=== PATIENT | female | born 1980 | race African-American/Black ===

== ENCOUNTER 2019-12-16 10:04 | Day surgery (SDC) | payer SELFPAY ==
[2019-12-16 10:46] VITALS: BMI 40.3
[2019-12-16] MEDS ORDERED: FLU VACC QS2020-21(6MOS UP)/PF 60 MCG/0.5 ML SYRINGE IM ONE (11:00)
[2019-12-16 11:11] LABS: Bacteria/HPF None Seen HPF (None Seen); Bilirubin Negative (Negative); Blood, Urine Negative (Negative); Clarity Clear (Clear); Glucose, Urine (Dipstick) Normal (Negative); Ketone, Urine Negative (Negative); Leukocyte Negative Leu/uL (Negative); Nitrite Negative (Negative); Protein, Urine (Dipstick) 10 mg/dL (Neg-Trace); RBC/HPF 0-3 HPF (0-3); Squamous Epithelial 0-3 HPF (0-3); Urobilinogen Normal mg/dL (Less than 2); WBC/HPF 0-3 HPF (0-3); pH, Urine 7.5 (5.0-9.0)
[2019-12-16 11:14] LABS: Urine Culture Reflex No No
--- NOTE | 2019-12-16 11:30 | PDOC.LDHP ---
Labor and Delivery H&P Chief complaint: abdominal pain HPI: 39 y/o at 20w4d presents for lower abdominal pain and spotting. Patient reports she gets pain for several hours at a time in her bilateral lower inguinal region that she describes as sharp and rates 5/10. She also has had some spotting off and on for several weeks. Denies heavy VB, LOF, or other concerns. Denies UTI sx. Has not had PNC yet but is scheduled for Monday at [facility]. ROS neg for HEENT, CV, pulm, gi, gu, neuro, psych, skin, musculoskeletal or constitutional symptoms other than mentioned above. OB History Details: 1 prior 22 years ago. Current complications: hypertension (no meds) Past Medical History: HTN - stopped meds when she found out she was . Current medications: pre-matt vitamins Previous surgical history: none Allergies/Adverse Reactions: Allergies Allergy/AdvReac Type Severity Reaction Status Date / Time No Known Allergies Allergy Verified 12/16/19 10:42 Social history: none - Physical Exam Vital signs reviewed and normal: yes General: NAD, resting Lungs: nonlabored breathing Abdomen: gravid Extremeties: no edema FHT: category 1 (140s) - Vaginal Exam cm dilated: 0 (no blood on SSE) Effacement: 0% Station: -3 - OB Labs Blood type: B RH: positive - Assessment 39 y/o at 20w4d with no e/o heavy bleeding or UTI. UA wnl. +FHTs - Plan -: D/c home with precautions. Advised to keep all appointments. First appointment scheduled for Monday.
== END 2019-12-16 11:46 | disposition home or self-care (01) ==
LOC: L&D/OP 10:04
PROVIDERS: ATTEND Family Medicine
DX: O99.891 Other specified diseases and conditions complicating pregnancy (principal); R10.30 Lower abdominal pain, unspecified; O26.852 Spotting complicating pregnancy, second trimester; O10.912 Unspecified pre-existing hypertension complicating pregnancy, second trimester; O09.522 Supervision of elderly multigravida, second trimester; Z3A.20 20 weeks gestation of pregnancy
CPT/HCPCS: 51701; 81001; 99282

== ENCOUNTER 2020-01-22 23:13 | Day surgery (SDC) | payer SELFPAY ==
[2020-01-22] MEDS ORDERED: hydrALAZINE 20 MG/ML VIAL SLOW IVP PRN (23:38)
--- NOTE | 2020-01-22 23:38 | PDOC.FPROB ---
FMR OB H&P: HPI - History of Present Illness Chief Complaint: groin pain History of Present Illness: 39 y/o at 26.0 wks by 6.5 wk inder presents for evaluation of groin/vaginal pain. States she has been having this pain since 11/2019, came to triage tonight due to acute worsening of this pain. For past 2 hours, she has had sharp, stabbing pain over the R labial and mons area. Denies any vaginal bleeding, vaginal discharge, LOF. Good movement. No fever, chills, dysuria, hematuria, rash, skin lesions. Endorses chronic constipation. Denies recent sexual activity. Primary Care Physician: MAYRA Gallardo F[facility] OB H&P: Current - Care : G2 Para: P1001 Gestational age: 26.0 Due date: 04/30/20 Dating Criteria: 6.5 wk sono Course/Complications: Hx trichomonas - treated - OB Labs Blood type: B RH: positive HIV: negative RPR: negative HepBsAg: negative Rubella: immune [facility]MR OB H&P: History - Past Medical History PMH: HTN, reflux - OB History OB History: x 1 - [employer] History [employer] History: endometriosis, uterine fibroid - Surgical History Sx History: No past surgeries - Social History Social History: Denies tobacco, etoh, drug use. Hx of incarceration x 20 years, released May 2019. - Family History Family History: CAD, breast cancer, DM, cirrhosis, alzheimer, brain aneurysm FMR OB H&P: Medications - Current Home Medications: Medication Instructions Recorded Confirmed Type No Known 01/22/20 01/22/20 History Allergies/Adverse Reactions: Allergies Allergy/AdvReac Type Severity Reaction Status Date / Time No Known Allergies Allergy Verified 12/16/19 10:42 FMR OB H&P: ROS - Review of Systems General: denies: fever/chills ENT: denies: nasal congestion, rhinorrhea, sore throat Cardiovascular: denies: chest pain, palpitation, edema Respiratory: denies: cough, congestion, shortness of breath Gastrointestinal: reports: indigestion, constipation. denies: vomiting, diarrhea Genitourinary (Female): reports: other (groin pain). denies: dysuria, hematuria, polyuria, vaginal discharge, vaginal bleeding, contractions Musculoskeletal: denies: pain Neurologic: denies: weakness, headache Integumentary: denies: itching, rash, lesions Endocrine: denies: polyuria FMR OB H&P: Vital Signs - Heart Tones Variability: moderate Acceleration: present Deceleration: absent [place] contractions every: absent FMR OB H&P: Physical Exam - Physical Exam General: NAD, awake, alert and oriented HEENT: normocephalic and atraumatic, MMM, conjunctiva clear, no scleral icterus, grossly normal vision, grossly normal hearing Neck: no LAD Chest: non-tender to palpation Heart: RRR, no murmurs/rubs/gallops, pulses present, no edema General: CTAB, no respiratory distress, no rales/rhonchi, no wheezing Abdomen: soft, gravid, non-tender Musculoskeletal: pulses present Neurological: sensation to pain,touch and proprioception grossly normal, no clonus Skin: no rash, good tugor Lymphatic: no unusual bruising or bleeding Psychiatric: intact recent and remote memory, normal mood and affect - Pelvic Exam Vulva: no masses, no lesions, no blood Deviation from normal: speculum exam without lesions, small amt discharge in vaginal vault Deviation from normal: no cervical motion tenderness FMR OB H&P: A/P Disposition: sIUP @ 26.0 wks - JOE 04/30/20 - late to care - FHT monitoring wnl Round ligament pain R sided groin pain, most likely round ligament pain. - No rash, skin lesions noted on exam. Minimal discharge noted on exam. - GC/CT, VP3, urine cx collected at [facility] yesterday during routine visit, results pending - 1 g tylenol GERD - pepcid x 1 Dispo: unremarkable exam. pain resolved with tylenol. discharge to home and f/u results of [facility] testing. Discussion: Date/Time: 01/22/20 2007 This H&P was discussed with Dr. Jett and Dr. Bhat who agree with the above documentation and plan. Addendum - Attending - Attending Attestation Date/Time: 01/24/20 0030 I personally evaluated the patient and discussed the management with Dr. Pressley on 01/22/20 I agree with the History, Examination, Assessment and Plan documented above with any addition or exceptions noted below - 39 y/o at 26.0 wks by 6.5 wk inder presents for evaluation of groin/vaginal pain. States she has been having this pain since 11/2019, came to triage tonight due to acute worsening of this pain. For past 2 hours, she has had sharp, stabbing pain over the R labial and mons area. Denies any vaginal bleeding, vaginal discharge, LOF. Good movement. No fever, chills, dysuria, hematuria, rash, skin lesions. Endorses chronic constipation. Afebrile VSS. Exam repeated by me and agree with resident's findings. A/P: 1) Round ligament pain- improved with dose of tylenol. Recommended tylenol at home as needed. Follow-up as scheduled in clinic. D/c home.
[2020-01-22 23:44] VITALS: BMI 38.7
[2020-01-23] MEDS ORDERED: Acetaminophen 500 MG TAB PO SCH (00:30)
[2020-01-23] MEDS ORDERED: Famotidine 20 MG TAB PO SCH (00:30)
[2020-01-23] MEDS ORDERED: FLU VACC QS2020-21(6MOS UP)/PF 60 MCG/0.5 ML SYRINGE IM ONE (09:00)
== END 2020-01-23 01:08 | disposition home or self-care (01) ==
LOC: L&D/OP 23:13
PROVIDERS: ATTEND Family Medicine
DX: O99.891 Other specified diseases and conditions complicating pregnancy (principal); R10.2 Pelvic and perineal pain; O99.612 Diseases of the digestive system complicating pregnancy, second trimester; K21.9 Gastro-esophageal reflux disease without esophagitis; O16.2 Unspecified maternal hypertension, second trimester; Z3A.26 26 weeks gestation of pregnancy; Z86.19 Personal history of other infectious and parasitic diseases
CPT/HCPCS: 99283

== ENCOUNTER 2021-10-26 05:09 | Emergency (ER) | payer OTHER ==
[2021-10-26] MEDS ORDERED: Adenosine 6 MG/2 ML VIAL ONE ×2 (05:15→05:25)
[2021-10-26] MEDS ORDERED: Lorazepam (BATCHED) 2 MG/ML SYR SLOW IVP SCH (05:30)
[2021-10-26] MEDS ORDERED: Lorazepam (BATCHED) 2 MG/ML SYR ONE (05:44)
[2021-10-26 05:57] LABS: #Basophils 0.1 thou/uL (0.0-0.2); #Eosinphils 0.2 thou/uL (0.0-0.7); #Lymphocytes 2.8 thou/uL (1.20-3.40); #Monocytes 0.5 thou/uL (0.11-0.59); #Neutrophils 4.4 thou/uL (1.40-6.50); %Basophils 1.4 % (0.0-1.0); %Eosinophils 2.4 % (0.0-10.0); %Lymphocytes 34.8 % (21.0-51.0); %Monocytes 6.7 % (0.0-10.0); %Neutrophils 54.7 % (42.0-75.0); Hemoglobin 12.3 g/dL (12.0-16.0); Mean Corpuscular HGB CONC 32.4 g/dL (32.0-36.0); Mean Corpuscular Hemoglobin 28.3 pg (27.0-31.0); Mean Corpuscular Volume 87.4 fL (78.0-98.0); Mean Platelet Volume 10.9 fL (7.4-10.4); Platelet Count 167 thou/uL (130-400); RBC Distribution Width 13.1 % (11.5-14.5); Red Blood Cell (RBC) Count 4.36 mill/uL (4.20-5.40)
[2021-10-26 06:18] LABS: ALT (SGPT) 16 U/L (8-55); AST (SGOT) 19 U/L (5-34); Albumin 3.5 g/dL (3.5-5.0); Alkaline Phosphatase 92 U/L (40-110); Anion Gap 15 mmol/L (10-20); BUN (Urea Nitrogen) 8 mg/dL (7.0-18.7); Bilirubin, Total 0.3 mg/dL (0.2-1.2); Calc. Creatinine Clearance 0 mL/min (70-130); Calcium 8.1 mg/dL (7.8-10.44); Carbon Dioxide 17 mmol/L (22-29); Chloride 111 mmol/L (98-107); Estimated GFR 95; Glucose 111 mg/dL (70-105); Potassium 3.9 mmol/L (3.5-5.1); Protein, Total 6.5 g/dL (6.0-8.3); Sodium 139 mmol/L (136-145)
[2021-10-26 06:51] LABS: BHCG - Serum Negative (NEGATIVE); Pregs Control Background? CLEAR/WHITE (CLR/WHITE); Pregs Control Bar Appear? YES (CONTROL BAR)
== END 2021-10-26 08:28 | disposition home or self-care (01) ==
LOC: ERS 05:09
DX: I47.1 Supraventricular tachycardia (principal); I10 Essential (primary) hypertension
CPT/HCPCS: 71045; 80053; 84443; 84484; 84703; 85025; 93005; 96374; 96375; J0153; J2060

== ENCOUNTER 2022-04-05 09:10 | Emergency (ER) | payer OTHER ==
[2022-04-05 10:52] LABS: #Basophils 0.1 thou/uL (0.0-0.2); #Eosinphils 0.2 thou/uL (0.0-0.7); #Lymphocytes 1.9 thou/uL (1.20-3.40); #Monocytes 0.5 thou/uL (0.11-0.59); #Neutrophils 3.2 thou/uL (1.40-6.50); %Basophils 1.5 % (0.0-1.0); %Eosinophils 3.6 % (0.0-10.0); %Lymphocytes 32.3 % (21.0-51.0); %Monocytes 7.9 % (0.0-10.0); %Neutrophils 54.8 % (42.0-75.0); Hemoglobin 13.2 g/dL (12.0-16.0); Mean Corpuscular HGB CONC 32.6 g/dL (32.0-36.0); Mean Corpuscular Hemoglobin 28.6 pg (27.0-31.0); Mean Corpuscular Volume 87.6 fl (78.0-98.0); Mean Platelet Volume 10.5 fL (7.4-10.4); Platelet Count 160 10x3/uL (130-400); RBC Distribution Width 13.4 % (11.5-14.5); Red Blood Cell (RBC) Count 4.62 mill/uL (4.20-5.40); White Blood Cell (WBC) Count 5.8 10x3/uL (4.8-10.8)
[2022-04-05 11:12] LABS: ALT (SGPT) 12 U/L (8-55); AST (SGOT) 15 U/L (5-34); Albumin 3.7 g/dL (3.5-5.0); Alkaline Phosphatase 101 U/L (40-110); Anion Gap 10 mmol/L (10-20); BUN (Urea Nitrogen) 8 mg/dL (7.0-18.7); Bilirubin, Total 0.2 mg/dL (0.2-1.2); Calc. Creatinine Clearance 0 mL/min (70-130); Calcium 9.3 mg/dL (7.8-10.44); Carbon Dioxide 26 mmol/L (22-29); Chloride 107 mmol/L (98-107); Estimated GFR 95; Globulin 3.5 g/dL (2.4-3.5); Glucose 99 mg/dL (70-105); Potassium 5.4 mmol/L (3.5-5.1); Protein, Total 7.2 g/dL (6.0-8.3); Sodium 138 mmol/L (136-145)
[2022-04-05] MEDS ORDERED: Metoprolol Tartrate 5 MG/5 ML VIAL ONE (11:47)
[2022-04-05 12:43] LABS: Anion Gap 15 mmol/L (10-20); BUN (Urea Nitrogen) 8 mg/dL (7.0-18.7); Calc. Creatinine Clearance 0 mL/min (70-130); Calcium 9.4 mg/dL (7.8-10.44); Carbon Dioxide 17 mmol/L (22-29); Chloride 111 mmol/L (98-107); Estimated GFR 102; Glucose 90 mg/dL (70-105); Potassium 5.3 mmol/L (3.5-5.1); Sodium 138 mmol/L (136-145)
== END 2022-04-05 13:46 | disposition home or self-care (01) ==
LOC: ERS 09:10
DX: I47.1 Supraventricular tachycardia (principal); R07.9 Chest pain, unspecified; E87.5 Hyperkalemia
CPT/HCPCS: 36415; 71045; 80053; 83880; 84484; 85025; 93005; 96374

== ENCOUNTER 2022-05-11 13:09 | Inpatient (IN) | payer OTHER ==
[2022-05-11] MEDS ORDERED: Adenosine 6 MG/2 ML VIAL ONE ×2 (13:17→13:26)
[2022-05-11] MEDS ORDERED: Diltiazem 125 MG/25 ML ONE (13:53)
[2022-05-11] MEDS ORDERED: Metoprolol Tartrate 25 MG TAB ONE (14:05)
[2022-05-11 15:11] LABS: #Basophils 0.1 thou/uL (0.0-0.2); #Eosinphils 0.2 thou/uL (0.0-0.7); #Lymphocytes 2.5 thou/uL (1.20-3.40); #Monocytes 0.6 thou/uL (0.11-0.59); #Neutrophils 4.4 thou/uL (1.40-6.50); %Basophils 1.1 % (0.0-1.0); %Eosinophils 2.7 % (0.0-10.0); %Monocytes 7.8 % (0.0-10.0); %Neutrophils 56.6 % (42.0-75.0); Hemoglobin 13.8 g/dL (12.0-16.0); Mean Corpuscular HGB CONC 32.4 g/dL (32.0-36.0); Mean Corpuscular Hemoglobin 28.4 pg (27.0-31.0); Mean Corpuscular Volume 87.7 fl (78.0-98.0); Mean Platelet Volume 11.6 fL (7.4-10.4); Platelet Count 150 10x3/uL (130-400); RBC Distribution Width 13.9 % (11.5-14.5); Red Blood Cell (RBC) Count 4.87 mill/uL (4.20-5.40); White Blood Cell (WBC) Count 7.7 10x3/uL (4.8-10.8)
[2022-05-11 15:28] LABS: ALT (SGPT) 13 U/L (8-55); AST (SGOT) 16 U/L (5-34); Albumin 4.3 g/dL (3.5-5.0); Alkaline Phosphatase 126 U/L (40-110); Anion Gap 12 mmol/L (10-20); BUN (Urea Nitrogen) 11 mg/dL (7.0-18.7); Bilirubin, Total 0.2 mg/dL (0.2-1.2); Calc. Creatinine Clearance 0 mL/min (70-130); Carbon Dioxide 22 mmol/L (22-29); Chloride 107 mmol/L (98-107); Estimated GFR 86; Globulin 3.9 g/dL (2.4-3.5); Glucose 85 mg/dL (70-105); Potassium 3.9 mmol/L (3.5-5.1); Protein, Total 8.2 g/dL (6.0-8.3); Sodium 137 mmol/L (136-145)
[2022-05-11] MEDS ORDERED: Simethicone Chewable 80 MG TAB PO PRN (16:30)
[2022-05-11] MEDS ORDERED: Acetaminophen 500 MG TAB PO PRN (16:30)
[2022-05-11] MEDS ORDERED: HYDROcodone/Acetaminophen 5/325 mg Tablet PO PRN (16:33)
[2022-05-11] MEDS ORDERED: Ondansetron ODT 4 MG TAB PO PRN (16:33)
[2022-05-11] MEDS ORDERED: Acetaminophen 325 MG TAB PO PRN (16:33)
[2022-05-11 17:56] LABS: Troponin I Less than 0.010 ng/mL (< 0.028)
[2022-05-11 20:32] VITALS: BMI 44.3
[2022-05-11] MEDS: Ferrous Sulfate 325 MG TAB PO SCH (20:38)
[2022-05-11] MEDS: Metoprolol Tartrate 25 MG TAB PO SCH (20:38)
[2022-05-11 20:50] LABS: BHCG - Serum Negative (NEGATIVE); Pregs Control Background? CLEAR/WHITE (CLR/WHITE); Pregs Control Bar Appear? YES (CONTROL BAR)
[2022-05-11 21:08] LABS: Troponin I Less than 0.010 ng/mL (< 0.028)
[2022-05-11] MEDS ORDERED: Diltiazem HCl 125 MG, Admixture Fee 1 EACH in Sodium Chloride 0.9% 100 ML IVPB SCH (23:59)
[2022-05-12] MEDS: Loratadine 10 MG TAB PO PRN ×2 (06:16→13:54)
[2022-05-12] MEDS: Ferrous Sulfate 325 MG TAB PO SCH ×2 (08:57→19:34)
[2022-05-12] MEDS: Metoprolol Tartrate 25 MG TAB PO SCH (08:57)
[2022-05-12 12:56] LABS: ALT (SGPT) 12 U/L (8-55); AST (SGOT) 18 U/L (5-34); Albumin 3.9 g/dL (3.5-5.0); Alkaline Phosphatase 111 U/L (40-110); Anion Gap 16 mmol/L (10-20); BUN (Urea Nitrogen) 11 mg/dL (7.0-18.7); Bilirubin, Total 0.2 mg/dL (0.2-1.2); Calc. Creatinine Clearance 184 mL/min (70-130); Carbon Dioxide 16 mmol/L (22-29); Chloride 108 mmol/L (98-107); Estimated GFR 89; Globulin 4.3 g/dL (2.4-3.5); Glucose 84 mg/dL (70-105); Potassium 4.1 mmol/L (3.5-5.1); Protein, Total 8.2 g/dL (6.0-8.3); Sodium 136 mmol/L (136-145)
[2022-05-12 15:41] LABS: #Eosinphils 0.3 thou/uL (0.0-0.7); #Lymphocytes 2.2 thou/uL (1.20-3.40); #Monocytes 0.4 thou/uL (0.11-0.59); #Neutrophils 3.9 thou/uL (1.40-6.50); %Basophils 0.7 % (0.0-1.0); %Eosinophils 4.9 % (0.0-10.0); %Lymphocytes 32.2 % (21.0-51.0); %Neutrophils 56.2 % (42.0-75.0); Hemoglobin 12.7 g/dL (12.0-16.0); Mean Corpuscular HGB CONC 33.9 g/dL (32.0-36.0); Mean Corpuscular Hemoglobin 29.8 pg (27.0-31.0); Mean Corpuscular Volume 87.9 fl (78.0-98.0); Platelet Count 138 10x3/uL (130-400); RBC Distribution Width 13.8 % (11.5-14.5); Red Blood Cell (RBC) Count 4.26 mill/uL (4.20-5.40); White Blood Cell (WBC) Count 6.9 10x3/uL (4.8-10.8)
[2022-05-13] MEDS ORDERED: Heparin 10,000 UNITS/ 10 ML VIAL ONE (07:06)
[2022-05-13] MEDS ORDERED: Propofol 1,000 MG/100 ML VIAL IV ONE (08:10)
[2022-05-13] MEDS ORDERED: FENTANYL 50 MCG/ML 1 ML VIAL ONE ×2 (08:10→09:06)
[2022-05-13] MEDS ORDERED: Midazolam HCl 2 mg/2 ml Vial ONE (08:10)
[2022-05-13] MEDS ORDERED: Lidocaine 1% (PF) 30 ML VIAL ONE (08:23)
[2022-05-13 08:57] VITALS: BP 127/78; TEMP 99.3
[2022-05-13] MEDS: Ferrous Sulfate 325 MG TAB PO SCH (09:00)
[2022-05-13] MEDS ORDERED: Isoproterenol 0.2 MG/1 ML AMP ONE ×2 (09:35→09:44)
== END 2022-05-13 16:10 | disposition home or self-care (01) | DRG 274 ==
LOC: ERS 13:09 → ERHOLD 16:43 → 2SW 20:00 → OBSVTOIN 05-12 10:49
PROVIDERS: ADMIT Internal Medicine; ATTEND Internal Medicine
PROC: 02583ZZ Destruction of Conduction Mechanism, Percutaneous Approach (ICD-10-PCS; principal; 2022-05-13)
PROC: 4A023FZ Measurement of Cardiac Rhythm, Percutaneous Approach (ICD-10-PCS; 2022-05-13)
PROC: 4A0234Z Measurement of Cardiac Electrical Activity, Percutaneous Approach (ICD-10-PCS; 2022-05-13)
PROC: 02K83ZZ Map Conduction Mechanism, Percutaneous Approach (ICD-10-PCS; 2022-05-13)
DX: I47.1 Supraventricular tachycardia (principal); Z68.41 Body mass index [BMI] 40.0-44.9, adult; Z20.822 Contact with and (suspected) exposure to COVID-19; I10 Essential (primary) hypertension; E66.01 Morbid (severe) obesity due to excess calories; Z91.14 Patient's other noncompliance with medication regimen; Z79.899 Other long term (current) drug therapy
CPT/HCPCS: 36415; 80053; 83735; 83880; 84484; 84703; 85025; 85379; 93005; 93306; 93623; 93653; 96365; 96366; 96372; 96376; C1730; C1732; C1760; C1894; C2630; G0378; J0153; J1644; J1650; J2001; J2250; J2704; J3010; U0003; U0005

== ENCOUNTER 2022-06-07 07:34 | Emergency (ER) | payer OTHER ==
[2022-06-07] MEDS ORDERED: Dexamethasone 4 MG TAB ONE (08:04)
== END 2022-06-07 08:21 | disposition home or self-care (01) ==
LOC: ERS 07:34
DX: J06.9 Acute upper respiratory infection, unspecified (principal); I10 Essential (primary) hypertension
CPT/HCPCS: 99284; J8540

== ENCOUNTER 2022-11-16 19:58 | Emergency (ER) | payer SELFPAY ==
[2022-11-16] MEDS ORDERED: Ipratropium/Albuterol 3 ML NEB ONE (21:40)
[2022-11-16 21:51] LABS: #Basophils 0.1 thou/uL (0.0-0.2); #Eosinphils 0.3 thou/uL (0.0-0.7); #Monocytes 0.7 thou/uL (0.11-0.59); #Neutrophils 4.6 thou/uL (1.40-6.50); %Basophils 0.7 % (0.0-1.0); %Eosinophils 3.5 % (0.0-10.0); %Lymphocytes 31.1 % (21.0-51.0); %Monocytes 8.8 % (0.0-10.0); %Neutrophils 55.5 % (42.0-75.0); Hemoglobin 11.8 g/dL (12.0-16.0); Mean Corpuscular HGB CONC 32.8 g/dL (32.0-36.0); Mean Corpuscular Hemoglobin 28.5 pg (27.0-31.0); Mean Platelet Volume 12.6 fL (7.4-10.4); Platelet Count 158 10x3/uL (130-400); RBC Distribution Width 13.7 % (11.5-14.5); Red Blood Cell (RBC) Count 4.14 mill/uL (4.20-5.40); White Blood Cell (WBC) Count 8.2 10x3/uL (4.8-10.8)
[2022-11-16] MEDS ORDERED: Dextromethorphan 30 MG/5 ML (89 ML BOTTLE) PO SCH (22:00)
[2022-11-16 22:15] LABS: ALT (SGPT) 13 U/L (8-55); AST (SGOT) 18 U/L (5-34); Albumin 3.9 g/dL (3.5-5.0); Alkaline Phosphatase 112 U/L (40-110); Anion Gap 12 mmol/L (10-20); BUN (Urea Nitrogen) 11 mg/dL (7.0-18.7); Bilirubin, Total 0.2 mg/dL (0.2-1.2); Calc. Creatinine Clearance 0 mL/min (70-130); Calcium 8.7 mg/dL (7.8-10.44); Carbon Dioxide 22 mmol/L (22-29); Chloride 105 mmol/L (98-107); Estimated GFR 89; Globulin 3.4 g/dL (2.4-3.5); Glucose 92 mg/dL (70-105); Potassium 4.3 mmol/L (3.5-5.1); Protein, Total 7.3 g/dL (6.0-8.3); Sodium 135 mmol/L (136-145)
[2022-11-16 22:26] LABS: Troponin I Less than 0.010 ng/mL (< 0.028)
== END 2022-11-16 22:42 | disposition home or self-care (01) ==
LOC: ERS 19:58
DX: J40 Bronchitis, not specified as acute or chronic (principal); I10 Essential (primary) hypertension
CPT/HCPCS: 36415; 71045; 80053; 83880; 84484; 85025; 93005; J7620

== ENCOUNTER 2023-01-04 18:46 | Emergency (ER) | payer MEDICAID, SELFPAY ==
[2023-01-04] MEDS ORDERED: Magnesium 2 GM/50 ML BAG (IN WATER) ONE (19:41)
[2023-01-04] MEDS ORDERED: methylPREDNISolone Sod Succ/PF 125 MG/2 ML VIAL ONE (19:42)
[2023-01-04 19:51] LABS: #Basophils 0.1 thou/uL (0.0-0.2); #Eosinphils 0.2 thou/uL (0.0-0.7); #Monocytes 0.5 thou/uL (0.11-0.59); #Neutrophils 4.1 thou/uL (1.40-6.50); %Basophils 0.7 % (0.0-1.0); %Eosinophils 3.4 % (0.0-10.0); %Lymphocytes 31.3 % (21.0-51.0); %Monocytes 6.6 % (0.0-10.0); %Neutrophils 57.7 % (42.0-75.0); Hematocrit 37.9 % (36.0-47.0); Hemoglobin 12.6 g/dL (12.0-16.0); Mean Corpuscular HGB CONC 33.2 g/dL (32.0-36.0); Mean Corpuscular Hemoglobin 28.5 pg (27.0-31.0); Mean Corpuscular Volume 85.7 fl (78.0-98.0); Mean Platelet Volume 12.9 fL (7.4-10.4); Platelet Count 157 10x3/uL (130-400); RBC Distribution Width 13.4 % (11.5-14.5); Red Blood Cell (RBC) Count 4.42 mill/uL (4.20-5.40); White Blood Cell (WBC) Count 7.2 10x3/uL (4.8-10.8)
[2023-01-04 20:17] LABS: ALT (SGPT) 12 U/L (8-55); AST (SGOT) 18 U/L (5-34); Albumin 4.4 g/dL (3.5-5.0); Alkaline Phosphatase 104 U/L (40-110); Anion Gap 12 mmol/L (10-20); BUN (Urea Nitrogen) 11 mg/dL (7.0-18.7); Bilirubin, Total Less than 0.2 mg/dL (0.2-1.2); Calc. Creatinine Clearance 0 mL/min (70-130); Calcium 9.6 mg/dL (7.8-10.44); Carbon Dioxide 25 mmol/L (22-29); Chloride 106 mmol/L (98-107); Estimated GFR 80; Globulin 3.4 g/dL (2.4-3.5); Glucose 130 mg/dL (70-105); Potassium 3.7 mmol/L (3.5-5.1); Protein, Total 7.8 g/dL (6.0-8.3); Sodium 139 mmol/L (136-145)
[2023-01-04 20:20] LABS: Troponin I Less than 0.010 ng/mL (< 0.028)
[2023-01-04] MEDS ORDERED: Ketorolac Tromethamine 30 MG/ML VIAL ONE (21:05)
== END 2023-01-04 22:20 | disposition home or self-care (01) ==
LOC: ERS 18:46
DX: R06.02 Shortness of breath (principal); I10 Essential (primary) hypertension
CPT/HCPCS: 71045; 80053; 83605; 83880; 84484; 85025; 93005; 96365; 96375; J1885; J2930; J3475